=== PATIENT | female | born 1950 | race Caucasian/White ===

== ENCOUNTER 2021-12-02 07:40 | Outpatient (CLI) | payer OTHER ==
[~2021-12-02 07:40] MED LIST: CIPRO750 MG PO; DOLOGEN CAPLET1 TAB PO; PREDNISONE5 MG/DOSE- PO; PROMETHAZINE D118 ML PO; SYNTHROID112 MCG; TUSSIONEX PENNKI5 ML PO
== END 2021-12-02 07:41 | disposition home or self-care (01) ==
LOC: NUCLEAR 07:40
PROVIDERS: ATTEND Internal Medicine Cardiovascular Disease
DX: I11.9 Hypertensive heart disease without heart failure (principal); I20.8 Other forms of angina pectoris; E78.2 Mixed hyperlipidemia
CPT/HCPCS: 78452; 93017; A9500; J0153

== ENCOUNTER 2022-08-23 20:45 | Emergency (ER) | payer OTHER ==
[~2022-08-23] VITALS: Ht 149.9 cm; Wt 69.4 kg
[2022-08-23] MEDS ORDERED: SYNTHROID75 MCG PO (21:13)
== END 2022-08-23 22:36 | disposition home or self-care (01) ==
LOC: ER 20:45
DX: K08.89 Other specified disorders of teeth and supporting structures (principal)

== ENCOUNTER 2023-08-02 07:19 | Outpatient (CLI) | payer OTHER ==
[~2023-08-02 07:19] MED LIST changes: +SYNTHROID75 MCG PO
== END 2023-08-02 07:20 | disposition home or self-care (01) ==
LOC: NUCLEAR 07:19
PROVIDERS: ATTEND Internal Medicine Cardiovascular Disease
DX: I11.9 Hypertensive heart disease without heart failure (principal); I20.8 Other forms of angina pectoris; E78.00 Pure hypercholesterolemia, unspecified
CPT/HCPCS: 78452; 93017; A9500; J0153

== ENCOUNTER 2023-12-03 15:12 | Emergency (ER) | payer OTHER ==
[~2023-12-03] VITALS: Ht 149.9 cm; Wt 68.9 kg
[2023-12-03] MEDS ORDERED: COZAAR25 MG (16:09)
[2023-12-03] MEDS ORDERED: VITAMIN D310 MC4 (16:10)
[2023-12-03] MEDS ORDERED: ROSUVASTATIN CAL5 MG (16:10)
[2023-12-03] MEDS ORDERED: ZETIA10 MG (16:10)
[2023-12-03] MEDS ORDERED: CALTRATE 600+D1 EAC1 (16:11)
[2023-12-03 18:22] LABS: HEMATOCRIT 37.9 % (36.0-45.00); HEMOGLOBIN 12.9 g/dL (12.0-15.00); MEAN CORPUSCULAR HEMOGLOBIN 29.6 pg (27.00-32.0); PLATELET COUNT 208 K/uL (150-450); RED BLOOD COUNT 4.35 M/uL (4.00-6.00); RED CELL DISTRIBUTION WIDTH 13.5 % (11.5-14.5)
[2023-12-03 18:51] LABS: ALBUMIN 3.7 gm/dL (3.4-5.0); BILIRUBIN TOTAL 0.5 mg/dL (0.3-1.2); CALCIUM 9.4 mg/dL (8.5-10.1); CREATININE SERUM 0.49 mg/dL (0.55-1.02); GFR 123.45; GLOBULINA 3.6 G/DL (2.4-3.5); POTASSIUM 3.06 mEq/L (3.5-5.1); TOTAL PROTEIN 7.3 gm/dL (6.4-8.2)
[2023-12-03] MEDS ORDERED: DICY20TA PO (20:29)
[2023-12-03] MEDS ORDERED: CIPRO500 MG PO (20:29)
[2023-12-03] MEDS ORDERED: OMEPRAZOLE40 MG PO (20:29)
[2023-12-03] MEDS ORDERED: METRONIDAZOLE500 MG PO (20:29)
== END 2023-12-03 21:41 | disposition home or self-care (01) ==
LOC: ER 15:12
PROVIDERS: General Practice
DX: R10.32 Left lower quadrant pain (principal); K57.32 Diverticulitis of large intestine without perforation or abscess without bleeding; E11.9 Type 2 diabetes mellitus without complications; I10 Essential (primary) hypertension
CPT/HCPCS: 36415; 70450; 96365; 96366; 99284; J3490; J7030

== ENCOUNTER 2024-05-24 16:55 | Emergency (ER) | payer OTHER ==
[~2024-05-24] VITALS: Ht 149.9 cm; Wt 72.6 kg
[~2024-05-24 16:55] MED LIST changes: +CALTRATE 600+D1 EAC1; +CIPRO500 MG PO; +COZAAR25 MG; +DICY20TA PO; +METRONIDAZOLE500 MG PO; +OMEPRAZOLE40 MG PO; +ROSUVASTATIN CAL5 MG; +VITAMIN D310 MC4; +ZETIA10 MG
[2024-05-24] MEDS ORDERED: ZYNCOF 400-201 EACH (17:29)
[2024-05-24] MEDS ORDERED: REMINYL8 MG (17:29)
[2024-05-24] MEDS ORDERED: ARICEPT5 MG (17:29)
[2024-05-24] MEDS ORDERED: FAMOtidine 10 MG/ML (4ML VIAL) IV ONE (18:15)
[2024-05-24] MEDS ORDERED: 0.9 % SODIUM CHLORIDE 500 ML IV ONE (18:15)
[2024-05-24 19:17] LABS: ALBUMIN 3.8 gm/dL (3.4-5.0); BILIRUBIN TOTAL 0.78 mg/dL (0.3-1.2); CALCIUM 8.9 mg/dL (8.5-10.1); CREATININE SERUM 0.57 mg/dL (0.55-1.02); GFR 103.4; GLOBULINA 3.6 G/DL (2.4-3.5); POTASSIUM 3.95 mEq/L (3.5-5.1); TOTAL PROTEIN 7.4 gm/dL (6.4-8.2)
[2024-05-24 19:40] LABS: HEMATOCRIT 37.4 % (36.0-45.00); HEMOGLOBIN 12.7 g/dL (12.0-15.00); MEAN CELL VOLUME 87.2 fL (80.00-100.00); MEAN CORPUSCULAR HEMOGLOBIN 29.7 pg (27.00-32.0); PLATELET COUNT 220 K/uL (150-450); RED BLOOD COUNT 4.29 M/uL (4.00-6.00); RED CELL DISTRIBUTION WIDTH 13.6 % (11.5-14.5)
[2024-05-24 19:53] LABS: URINE APPEARANCE Clear; URINE BILIRRUBIN Negative (NEGATIVE); URINE BLOOD Trace; URINE COLOR Yellow; URINE GLUCOSE Negative (NEGATIVE); URINE LEUKOCYTE Negative; URINE NITRATE Negative; URINE PROTEIN Negative (NEGATIVE); URINE UROBILINOGEN 0.2 E.U./dl
[2024-05-24 19:56] LABS: URINE EPITHELIAL CELLS 5.5 uL (0.0-38.8); URINE WBC 19.4 uL (0.0-23.2)
== END 2024-05-24 21:06 | disposition home or self-care (01) ==
LOC: ER 16:56
PROVIDERS: General Practice
DX: K52.89 Other specified noninfective gastroenteritis and colitis (principal); K57.30 Diverticulosis of large intestine without perforation or abscess without bleeding; E03.8 Other specified hypothyroidism
CPT/HCPCS: 36415; 74177; 99284; J3490; J7042; Q9965

== ENCOUNTER 2024-06-26 11:58 | Outpatient (CLI) | payer OTHER ==
[~2024-06-26 11:58] MED LIST changes: +ARICEPT5 MG; +REMINYL8 MG; +ZYNCOF 400-201 EACH
== END 2024-06-26 12:04 | disposition home or self-care (01) ==
LOC: SONOGRAMA 11:58
PROVIDERS: ATTEND Obstetrics & Gynecology Maternal & Fetal Medicine
DX: R10.2 Pelvic and perineal pain (principal)

== ENCOUNTER 2024-06-26 13:10 | Outpatient (CLI) | payer OTHER | END 2024-06-26 13:11 | disposition home or self-care (01) | LOC: NUCLEAR 13:10 | DX: M85.80 Other specified disorders of bone density and structure, unspecified site (principal); M81.0 Age-related osteoporosis without current pathological fracture ==